=== PATIENT | female | born 1940 | race Caucasian/White ===

== ENCOUNTER → 2018-08-01 | Outpatient (CLI) | payer MEDICARE, OTHER ==
--- NOTE | 2018-08-01 14:17 | Diagnostic Imaging Report ---
PROCEDURE: MRI left joint lower extremity without contrast. TECHNIQUE: Multiplanar, multisequence non contrast-enhanced MRI of the left lower extremity was accomplished. INDICATION: Left knee pain on the medial side. COMPARISON: No prior studies are available for comparison. FINDINGS: Evaluation of the marrow signal does show a large amount of edema involving the medial femoral condyle. There is curvilinear low signal at the subchondral portion of the medial femoral condyle and findings are suggestive of a subchondral fracture with surrounding bone edema and contusion. There is a slightly lobulated lesion involving the proximal tibia just lateral to midline measuring approximately 2 cm in size. This demonstrates intermediate signal on proton density with lower signal on T1 and increased signal on T2 weighted images. This may represent a chondroid lesion. No other marrow replacing lesions are identified. The ACL and PCL appear to be intact. The medial and lateral collateral ligament complexes appear to be intact. There is some thickening and increased signal involving the medial patellar retinaculum. Medial and lateral menisci appear to be intact. No tear or displaced meniscal fragment is seen. Extensor mechanism is unremarkable. 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 IMPRESSION: 1. Findings suggestive of subchondral fracture of the medial femoral condyle with large amount of surrounding marrow edema. 2. No evidence of ligamentous or meniscal tear. There is some thickening and signal involving the medial patellar retinaculum which could be partially torn. Patellofemoral alignment is maintained. 3. Bustamante's cyst. 4. Chondroid appearing lesion of the proximal tibia. No bony destructive changes or endosteal scalloping is seen. This most likely represents a benign chondroid lesion such as an enchondroma. Low-grade chondrosarcoma cannot be entirely excluded and continued close followup with repeat study in six months is recommended to confirm stability. Dictated by: Dictated on workstation # [id number]
== END ==
LOC: RAD 10:41
PROVIDERS: ATTEND Nurse Practitioner
DX: M71.22 Synovial cyst of popliteal space [Baker], left knee (principal); M67.864 Other specified disorders of tendon, left knee
CPT/HCPCS: 73721